=== PATIENT | male | born 1980 | race Two or more races ===

== ENCOUNTER 2022-03-15 17:41 | Emergency (ER) | payer MEDICAID ==
[~2022-03-15] VITALS: Ht 182.9 cm; Wt 66.0 kg
[2022-03-15 18:05] VITALS: BP 106/58
== END 2022-03-15 22:34 | disposition left against medical advice (07) ==
LOC: ER 17:41
DX: Z53.21 Procedure and treatment not carried out due to patient leaving prior to being seen by health care provider (principal)